=== PATIENT | male | born 1990 | race Caucasian/White ===

== ENCOUNTER 2017-08-08 11:12 | Emergency (ER) | payer SELFPAY ==
[2017-08-08 11:23] VITALS: BP 142/90; BMI 36.2
[2017-08-08] MEDS ORDERED: TORADOL 30 MG VIAL IVP ONE (12:25)
[2017-08-08] MEDS ORDERED: PHENERGAN INJ 25 MG IV PRN (12:25)
[2017-08-08] MEDS ORDERED: NS 1000 ML 1,000 ML IV ONE (12:25)
--- NOTE | 2017-08-08 12:25 | DR.GENAD ---
HPI - PCP Primary Care Physician: NFD - Complaint/Symptoms Chief Complaint Doctors Comments: Patient admits to nausea and vomiting for four days. Denies fever or diarrhea. He states that he got weak this AM and mom kept him from falling to the floor. He also reports that he has a headache. Chief Complaint:: PT STATES " I HAVE BEEN SICK AND I BLACKED OUT ABOUT 15 MIN AGO AND MY MOM TOLD ME TO COME ". / Self Treatment fo Chief Complaint: OTC COLD MEDS - Source History Provided: Patient - Mode of Arrival Mode of Arrival: Ambulatory - Timing Onset of Chief Complaint: 08/08/17 PMH - PMH Past Medical History: No Past Surgical History: No - Family History History of Family Medical Conditions: No - Social History Does patient currently use any type of tobacco product: No Have you used tobacco products in the last 12 months: No Type of Tobacco Use: None Does any household member use tobacco: No Alcohol Use: Rarely Do you use any recreational Drugs:: No Lives Where: Home - infectious screening In the last 2 months have you had wt loss of >10#?: NO Have you had fever, night sweats or hemotysis?: No Have you traveled outside the country in the last 6 months?: No Isolation: Standard ROS - Review of Systems Constitutional: No Symptoms Reported Eyes: No Symptoms Reported ENTM: No Symptoms Reported Respiratoy: No Symptoms Reported Cardiovascular: No Symptoms Reported Gastrointestinal/Abdominal: No Symptoms Reported Genitourinary: No Symptoms Reported Neurological: No Symptoms Reported Musculoskeletal: No Symptoms Reported Integumentary: No Symptoms Reported Hematologic/Lymphatic: No Symptoms Reported Endocrine: No Symptoms Reported Psychiatric: No Symptoms Reported All Other Systems: Reviewed and Negative PE - Vital Signs Vitals: Temperature 98.1 F Pulse Rate 74 Respiratory Rate 20 Blood Pressure 142/90 O2 Sat by Pulse Oximetry 99 - General General Appearance: Alert, In No Apparent Distress - Head Head Exam: Normal Inspection, Atraumatic - Eyes Eye exam: Normal Appearance, PERRL, EOMI - ENT ENT Exam: Normal Exam. negative: Mucous Membranes Dry External Ear Exam: Normal External Inspection TM/Canal Exam: Bilateral Normal Nose Exam: Normal Nose Exam Mouth Exam: Normal Inspection Throat Exam: Normal Inspection - Neck Neck Exam: Normal Inspection - Chest Chest Inspection: Normal Inspection - Respiratory Respiratory Exam: Normal Lung Sounds Bilat Respiratory Exam: Bilateral Clear to Auscultation - Cardiovascular Cardiovascular Exam: Regular Rate, Normal Rhythm - Abdominal Exam Abdominal Exam: Normal Inspection Abdominal Tenderness: negative: RUQ, RLQ, LUQ, LLQ, Epigastrium, Suprapubic, Diffuse, Mild, Moderate, Severe, Other - Extremities Extremities Exam: Normal Inspection, Full ROM - Back Back Exam: Normal Inspection, Tenderness - Psychiatric Psychiatric Exam: Normal Affect - Skin Skin Exam: Warm, Dry, Intact Course - Reevaluation 1st: Improved ROR - Labs Reviewed Laboratory: Specimen Type Clean catch urine 08/08/17 13:12 Urine Color Yellow (YELLOW) 08/08/17 13:12 Urine Appearance Clear (CLEAR) 08/08/17 13:12 Urine pH 8.0 (5.0 - 8.0) 08/08/17 13:12 Ur Specific [place] 1.015 (1.000-1.030) 08/08/17 13:12 Urine Protein Negative (NEGATIVE) 08/08/17 13:12 Urine Glucose (UA) Negative (NEGATIVE) 08/08/17 13:12 Urine Ketones Negative (NEGATIVE) 08/08/17 13:12 Urine Occult Blood Negative (NEGATIVE) 08/08/17 13:12 Urine Nitrite Negative (NEGATIVE) 08/08/17 13:12 Urine Bilirubin Negative (NEGATIVE) 08/08/17 13:12 Urine Urobilinogen Normal (NORMAL) 08/08/17 13:12 Ur Leukocyte Esterase 1+ (NEGATIVE) 08/08/17 13:12 Urine RBC 0-1 /HPF (NEGATIVE) 08/08/17 13:12 Urine WBC 2-3 /HPF (NEGATIVE) 08/08/17 13:12 Ur Squamous Epith Cells Few /HPF (NEGATIVE) 08/08/17 13:12 Urine Bacteria Trace /HPF (NEGATIVE) 08/08/17 13:12 Urine Mucus Few /HPF (NEGATIVE) 08/08/17 13:12 Ur Culture Indicated? No/not indicated 08/08/17 13:12 Streptococcus Screen Negative (NEGATIVE) 08/08/17 13:16 - Diagnosis Discharge Problem: Viral infection - Discharge Plan Condition: Stable - Follow ups/Referrals Follow ups/Referrals: NFD,None [Primary Care Provider] - 3 days - Instructions
[2017-08-08] MEDS ORDERED: TORADOL 30 MG VIAL ONE (12:27)
[2017-08-08] MEDS ORDERED: PHENERGAN INJ 25 MG ONE (12:28)
[2017-08-08] MEDS ORDERED: NS 1000 ML 1,000 ML ONE (12:30)
[2017-08-08 13:24] LABS: BILIRUBIN,URINE NEGATIVE (NEGATIVE); BLOOD/HEMOGLOBIN,URINE NEGATIVE (NEGATIVE); GLUCOSE, URINE NEGATIVE (NEGATIVE); KETONES,URINE NEGATIVE (NEGATIVE); LEUKOCYTE ESTERASE ,URINE 1+ (NEGATIVE); NITRITES,URINE NEGATIVE (NEGATIVE); PROTEIN,URINE NEGATIVE (NEGATIVE); UROBILINOGEN,URINE NORMAL (NORMAL)
[2017-08-08 13:32] LABS: APPEARANCE,URINE CLEAR (CLEAR); COLOR,URINE YELLOW (YELLOW); RBC,URINE 0-1 /HPF (NEGATIVE)
[2017-08-08 13:33] LABS: BACTERIA,URINE TRACE /HPF (NEGATIVE); MUCUS,URINE FEW /HPF (NEGATIVE); SQUAMOUS EPITHELIAL CELL,UR FEW /HPF (NEGATIVE)
== END 2017-08-08 14:35 | disposition home or self-care (01) ==
LOC: ER 11:36
DX: B34.8 Other viral infections of unspecified site (principal); B95.0 Streptococcus, group A, as the cause of diseases classified elsewhere
CPT/HCPCS: 81001; 87070; 87077; 87186; 87880; 96365; 96374; 96375; 99282; 99283; A4222; J1885; J2550

== ENCOUNTER 2017-11-06 12:48 | Emergency (ER) | payer SELFPAY ==
[2017-11-06 13:07] VITALS: BMI 34.9
--- NOTE | 2017-11-06 13:19 | DR.GENAD ---
HPI - PCP Primary Care Physician: nfd - Complaint/Symptoms Chief Complaint Doctors Comments: Patient states that he drank too much alcohol on last nigh. He has been vomiting since last night, admits to headache and nausea Chief Complaint:: PT STATES HE DRANK TOO MUCH ALCOHOL LAST NIGHT. THINKS HE HAS ALCOHOL POISONING. STATES HE STOPPED DRINKING LAST NIGHT AT 1030PM. PT STATES HE WAS DRINKING "SANDRA" - Source History Provided: Patient - Mode of Arrival Mode of Arrival: Ambulatory - Timing Onset of Chief Complaint: 11/06/17 PMH - PMH Past Medical History: No Past Surgical History: No - Family History History of Family Medical Conditions: No - Social History Does patient currently use any type of tobacco product: No Have you used tobacco products in the last 12 months: No Type of Tobacco Use: None Does any household member use tobacco: Yes Alcohol Use: None Do you use any recreational Drugs:: No Lives With: Alone Lives Where: Home - infectious screening In the last 2 months have you had wt loss of >10#?: NO Have you had fever, night sweats or hemotysis?: No Have you traveled outside the country in the last 6 months?: No Isolation: Standard ROS - Review of Systems Eyes: No Symptoms Reported ENTM: No Symptoms Reported Respiratoy: No Symptoms Reported Cardiovascular: No Symptoms Reported Gastrointestinal/Abdominal: No Symptoms Reported Genitourinary: No Symptoms Reported Neurological: No Symptoms Reported Musculoskeletal: No Symptoms Reported Integumentary: No Symptoms Reported Hematologic/Lymphatic: No Symptoms Reported Endocrine: No Symptoms Reported Psychiatric: No Symptoms Reported All Other Systems: Reviewed and Negative PE - Vital Signs Vitals: Temperature 98.1 F Pulse Rate 91 Respiratory Rate 20 Blood Pressure 146/86 O2 Sat by Pulse Oximetry 96 - General General Appearance: Alert, In No Apparent Distress - Head Head Exam: Normal Inspection, Atraumatic - Eyes Eye exam: Normal Appearance, PERRL, EOMI - ENT ENT Exam: Normal Exam External Ear Exam: Normal External Inspection TM/Canal Exam: Bilateral Normal Nose Exam: Normal Nose Exam Mouth Exam: Normal Inspection Throat Exam: Normal Inspection - Neck Neck Exam: Normal Inspection - Chest Chest Inspection: Normal Inspection - Respiratory Respiratory Exam: Normal Lung Sounds Bilat Respiratory Exam: Bilateral Clear to Auscultation - Cardiovascular Cardiovascular Exam: Regular Rate, Normal Rhythm - Abdominal Exam Abdominal Exam: Normal Inspection, Normal Bowel Sounds Abdominal Tenderness: negative: RUQ, RLQ, LUQ, LLQ, Epigastrium, Suprapubic, Diffuse, Mild, Moderate, Severe, Other - Extremities Extremities Exam: Normal Inspection, Full ROM - Back Back Exam: Normal Inspection - Neurologic Neurological Exam: Alert, Oriented X3, CN II-XII Intact - Psychiatric Psychiatric Exam: Normal Affect, Normal Mood - Skin Skin Exam: Warm, Dry, Intact Course - Reevaluation 1st: Improved ROR - Labs Reviewed Result Diagrams: 11/06/17 13:30 11/06/17 13:30 Laboratory: WBC 6.4 X10^3/uL (3.6-10.0) 11/06/17 13:30 RBC 4.85 X10^6/uL (4.7-6.0) 11/06/17 13:30 Hgb 14.8 g/dL (13.5-18.0) 11/06/17 13:30 Hct 43.2 % (42.0-54.0) 11/06/17 13:30 MCV 89.1 fL (80.0-100.0) 11/06/17 13:30 MCH 30.4 pg (27.0-34.0) 11/06/17 13:30 MCHC 34.2 g/dL (33.0-35.0) 11/06/17 13:30 RDW 13.4 % (11.6-16.5) 11/06/17 13:30 Plt Count 225 X10^3/uL (150.0-450.0) 11/06/17 13:30 MPV 8.9 fL (7.4-11.0) 11/06/17 13:30 Neut % 68.1 % (42.0-75.0) 11/06/17 13:30 Lymph % 22.5 % (21.0-51.0) 11/06/17 13:30 [place] % 6.3 % (0.0-13.0) 11/06/17 13:30 Eos % 1.7 % (0.9-2.9) 11/06/17 13:30 Baso % 1.4 % (0.2-1.0) H 11/06/17 13:30 Neut # 4.4 x10^3/uL (2.2-4.8) 11/06/17 13:30 Lymph # 1.5 X10^3/uL (1.3-2.9) 11/06/17 13:30 Porter # 0.4 x10^3/uL (0.3-0.8) 11/06/17 13:30 Eos # 0.1 x10^3/uL (0.0-0.2) 11/06/17 13:30 Baso # 0.1 X10^3/uL (0.0-0.1) 11/06/17 13:30 Absolute Nucleated RBC 0.0 /100WBC 11/06/17 13:30 Sodium 141 mmol/L (136-145) 11/06/17 13:30 Corrected Sodium TNP 11/06/17 13:30 Potassium 4.1 mmol/L (3.5-5.1) 11/06/17 13:30 Chloride 105 mmol/L (98-107) 11/06/17 13:30 Carbon Dioxide 28.0 mmol/L (21-32) 11/06/17 13:30 BUN 11 mg/dL (7-18) 11/06/17 13:30 Creatinine 1.25 mg/dL (0.70-1.30) 11/06/17 13:30 Est GFR (MDRD) Af Amer > 60 (>60) 11/06/17 13:30 Est GFR (MDRD) Non-Af > 60 (>60) 11/06/17 13:30 Glucose 107 mg/dL (65-99) H 11/06/17 13:30 Calcium 8.3 mg/dL (8.5-10.1) L 11/06/17 13:30 Specimen Type Clean catch urine 11/06/17 15:46 Urine Color Yellow (YELLOW) 11/06/17 15:46 Urine Appearance Clear (CLEAR) 11/06/17 15:46 Urine pH 8.0 (5.0 - 8.0) 11/06/17 15:46 Ur Specific [place] 1.015 (1.000-1.030) 11/06/17 15:46 Urine Protein Negative (NEGATIVE) 11/06/17 15:46 Urine Glucose (UA) Negative (NEGATIVE) 11/06/17 15:46 Urine Ketones Negative (NEGATIVE) 11/06/17 15:46 Urine Occult Blood Negative (NEGATIVE) 11/06/17 15:46 Urine Nitrite Negative (NEGATIVE) 11/06/17 15:46 Urine Bilirubin Negative (NEGATIVE) 11/06/17 15:46 Urine Urobilinogen Normal (NORMAL) 11/06/17 15:46 Ur Leukocyte Esterase Negative (NEGATIVE) 11/06/17 15:46 Urine RBC None seen /HPF (NEGATIVE) 11/06/17 15:46 Urine WBC 0-1 /HPF (NEGATIVE) 11/06/17 15:46 Ur Squamous Epith Cells Negative /HPF (NEGATIVE) 11/06/17 15:46 Urine Bacteria Trace /HPF (NEGATIVE) 11/06/17 15:46 Urine Sperm Few /HPF (NEGATIVE) 11/06/17 15:46 Ur Culture Indicated? No/not indicated 11/06/17 15:46 Urine Opiates Screen Negative (NEG=<300) 11/06/17 15:46 Urine Methadone Screen Negative (NEG=<300) 11/06/17 15:46 Ur Barbiturates Screen Negative (NEG=<200) 11/06/17 15:46 Ur Phencyclidine Scrn Negative (NEG=<25) 11/06/17 15:46 Ur Amphetamines Screen Negative (NEG=<1000) 11/06/17 15:46 U Benzodiazepines Scrn Negative (NEG=<200) 11/06/17 15:46 Urine Cocaine Screen Negative (NEG=<300) 11/06/17 15:46 U Marijuana (THC) Screen Negative (NEG=<50) 11/06/17 15:46 - Diagnosis Discharge Problem: Alcohol consumption binge drinking - Discharge Plan Condition: Stable - Follow ups/Referrals Follow ups/Referrals: NFD,None [Primary Care Provider] - 3 days - Instructions
[2017-11-06] MEDS ORDERED: ZOFRAN INJ 4 MG VIAL IVP ONE (13:21)
[2017-11-06] MEDS ORDERED: NS 1000 ML 1,000 ML ONE (13:25)
[2017-11-06] MEDS ORDERED: MAGNESIUM SULFATE 50% INJ ONE (13:26)
[2017-11-06] MEDS ORDERED: THIAMINE HCL INJ ONE (13:26)
[2017-11-06] MEDS ORDERED: PHENOBARBITAL SODIUM INJ 65 MG VIAL ONE (13:26)
[2017-11-06] MEDS ORDERED: MVI INJ (ADULT) IV ONE (13:31)
[2017-11-06] MEDS ORDERED: ZOFRAN INJ 4 MG VIAL ONE (13:32)
[2017-11-06 13:41] LABS: BASOPHILS # (AUTO) 0.1 X10^3/uL (0.0-0.1); BASOPHILS % (AUTO) 1.4 % (0.2-1.0); EOSINOPHILS # (AUTO) 0.1 x10^3/uL (0.0-0.2); EOSINOPHILS % (AUTO) 1.7 % (0.9-2.9); HEMATOCRIT 43.2 % (42.0-54.0); HEMOGLOBIN 14.8 g/dL (13.5-18.0); LYMPHOCYTES # (AUTO) 1.5 X10^3/uL (1.3-2.9); LYMPHOCYTES % (AUTO) 22.5 % (21.0-51.0); MEAN CORPUSCULAR HEMOGLOBIN 30.4 pg (27.0-34.0); MEAN CORPUSCULAR HGB CONC 34.2 g/dL (33.0-35.0); MEAN CORPUSCULAR VOLUME 89.1 fL (80.0-100.0); MEAN PLATELET VOLUME 8.9 fL (7.4-11.0); MONOCYTES # (AUTO) 0.4 x10^3/uL (0.3-0.8); MONOCYTES % (AUTO) 6.3 % (0.0-13.0); NEUTROPHILS # (AUTO) 4.4 x10^3/uL (2.2-4.8); NEUTROPHILS % (AUTO) 68.1 % (42.0-75.0); PLATELET COUNT 225 X10^3/uL (150.0-450.0); RED BLOOD COUNT 4.85 X10^6/uL (4.7-6.0); RED CELL DISTRIBUTION WIDTH 13.4 % (11.6-16.5); WHITE BLOOD COUNT 6.4 X10^3/uL (3.6-10.0)
[2017-11-06 13:48] LABS: BLOOD UREA NITROGEN 11 mg/dL (7-18); CALCIUM 8.3 mg/dL (8.5-10.1); CHLORIDE 105 mmol/L (98-107); CREATININE 1.25 mg/dL (0.70-1.30); SODIUM 141 mmol/L (136-145); eGFR BLACK RACES > 60 (>60); eGFR NON BLACK RACES > 60 (>60)
[2017-11-06] MEDS ORDERED: NS 1000 ML 1,000 ML with THIAMINE HCL INJ 100 MG, MAGNESIUM SULFATE 50% INJ 1 GM, MVI I... IV SCH ×5 (14:00)
[2017-11-06 15:56] LABS: BILIRUBIN,URINE NEGATIVE (NEGATIVE); BLOOD/HEMOGLOBIN,URINE NEGATIVE (NEGATIVE); GLUCOSE, URINE NEGATIVE (NEGATIVE); KETONES,URINE NEGATIVE (NEGATIVE); LEUKOCYTE ESTERASE ,URINE NEGATIVE (NEGATIVE); NITRITES,URINE NEGATIVE (NEGATIVE); PROTEIN,URINE NEGATIVE (NEGATIVE); UROBILINOGEN,URINE NORMAL (NORMAL)
[2017-11-06 16:09] LABS: APPEARANCE,URINE CLEAR (CLEAR); BACTERIA,URINE TRACE /HPF (NEGATIVE); COLOR,URINE YELLOW (YELLOW); RBC,URINE NONE SEEN /HPF (NEGATIVE); SQUAMOUS EPITHELIAL CELL,UR NEGATIVE /HPF (NEGATIVE)
[2017-11-06 16:10] LABS: SPERM,URINE FEW /HPF (NEGATIVE)
[2017-11-06 16:28] VITALS: BP 130/72
== END 2017-11-06 16:29 | disposition home or self-care (01) ==
LOC: ER 13:03
DX: F10.10 Alcohol abuse, uncomplicated (principal)
CPT/HCPCS: 36415; 80048; 80307; 81001; 85025; 96365; 96367; 96374; 99282; 99283; A4222; G0434; J2405; J2560; J3411; J3475

== ENCOUNTER 2018-03-18 15:59 | Emergency (ER) | payer SELFPAY ==
[2018-03-18 16:06] VITALS: BP 139/79; BMI 34.9
[2018-03-18] MEDS ORDERED: TORADOL 60 MG VIAL IM ONE (16:52)
[2018-03-18] MEDS ORDERED: ATIVAN INJ 2 MG VIAL IM STA (16:53)
--- NOTE | 2018-03-18 16:56 | DR.GENAD ---
HPI - PCP Primary Care Physician: nfd - Complaint/Symptoms Chief Complaint Doctors Comments: Patient complains of right shoulder, neck and upper back pain for the past 24 hours getting worst. States he had a little tightness in his neck yesterday and last night he used some Bio-Freeze and her played a golf tournament today with severe right neck pain after taking a swing of the golf clubs and now unable to move his neck from the right side. states he is having severe right lateral neck, shoulder and upper back pain worst on movement. states the pain is 10 of 10. States he has not had anything for the pain and has only used Bio-Freeze. He denies tobacco use but drinks beer socially. He denies fever, chills, cold, or cough. Chief Complaint:: patient c/o right shoulder and arm pain that started last night but got worse after a golfing event today. Patient has attempted a warm bath and biofreeze for pain relief without relief. Patient is holding arm with neck turned to right side. - Nurses notes reviewed Nurses Notes Review: Yes - Source History Provided: Patient - Mode of Arrival Mode of Arrival: Ambulatory - Timing Onset of Chief Complaint: 03/17/18 Came on: Gradually - Duration Duration: Constant How lon Duration: Days - Location Location: right lateral neck pain - Severity Severity: Moderate - Modifying Factors Worsens:: movement Improves:: movement PMH - PMH Past Medical History: No Past Surgical History: No - Family History History of Family Medical Conditions: No - Social History Does patient currently use any type of tobacco product: No Have you used tobacco products in the last 12 months: No Type of Tobacco Use: None Does any household member use tobacco: No Alcohol Use: Occasionally Do you use any recreational Drugs:: No Lives With: Family Lives Where: Home - infectious screening In the last 2 months have you had wt loss of >10#?: NO Have you had fever, night sweats or hemotysis?: No Have you traveled outside the country in the last 6 months?: No Isolation: Standard ROS - Review of Systems Constitutional: No Symptoms Reported. negative: See HPI, Chills, Diaphoresis, Fever, Malaise, Weakness, Irritable, Fatigue, Loss of Appetite, Other Eyes: No Symptoms Reported ENTM: No Symptoms Reported Respiratoy: No Symptoms Reported Cardiovascular: No Symptoms Reported. negative: See HPI, Chest Pain, Edema, Palpitations, Syncope, Cyanosis, Skin Mottling, Other Gastrointestinal/Abdominal: No Symptoms Reported. negative: See HPI, Abdominal Pain, Constipation, Diarrhea, Nausea, Vomiting, Food Intolerance, Other Genitourinary: No Symptoms Reported. negative: See HPI, Discharge, Dysuria, Frequency, Hematuria, Pain, Bleeding, Other Neurological: No Symptoms Reported, Paresthesia Musculoskeletal: No Symptoms Reported, Muscle Pain, Muscle Stiffness, Neck Pain , Right, Back, Shoulder Integumentary: No Symptoms Reported. negative: See HPI, Change in Color, Change in Hair/Nails, Dryness, Lesions, Lumps, Rash, Itching, Wound, Bruises, Juandice, Other Hematologic/Lymphatic: No Symptoms Reported Endocrine: No Symptoms Reported Psychiatric: No Symptoms Reported PE - Vital Signs Vitals: Temperature 99.7 F Pulse Rate 97 Respiratory Rate 20 Blood Pressure [Right Arm] 130/72 Blood Pressure 139/79 O2 Sat by Pulse Oximetry 98 - General Limitations: No Limitations General Appearance: Alert, In Distress (moderate) - Head Head Exam: Normal Inspection, Atraumatic, Normocephalic - Eyes Eye exam: Normal Appearance, PERRL, EOMI. negative: Scleral Icterus, Conjunctival Injection, Nystagmus, Miosis, Mydrasis, Periorbital Swelling, Periorbital Tenderness, Other - ENT ENT Exam: Normal Exam, Normal Oropharynx, Normal External Ear Exam, Mucous Membranes Moist, TM's Normal Bilaterally External Ear Exam: Normal External Inspection TM/Canal Exam: Bilateral Normal Nose Exam: Normal Nose Exam Mouth Exam: Normal Inspection Throat Exam: Normal Inspection, Tonsillomegaly. negative: Tonsillar Erythema, Tonsillar Exudate, R Peritonsillar Mass, L Peritonsillar Mass, Muffled Voice, Other - Neck Neck Exam: Normal Inspection, Full ROM, Tenderness (right lateral neck spasms; tender firm muscles tender on movement). negative: Trachea Midline - Chest Chest Inspection: Normal Inspection, Symmetric Chest Wall Rise - Respiratory Respiratory Exam: Normal Lung Sounds Bilat Respiratory Exam: Bilateral Clear to Auscultation - Cardiovascular Cardiovascular Exam: Regular Rate, Normal Rhythm, Normal Heart Sounds, Systolic Murmur - Abdominal Exam Abdominal Exam: Normal Inspection, Normal Bowel Sounds, Soft Abdominal Tenderness: negative: RUQ, RLQ, LUQ, LLQ, Epigastrium, Suprapubic, Diffuse, Mild, Moderate, Severe, Other - Extremities Extremities Exam: Normal Inspection, Full ROM, Normal Capillary Refill. negative: Tenderness, Edema, Joint Swelling, Calf Tenderness, Other - Back Back Exam: Normal Inspection, Full ROM - Neurologic Neurological Exam: Alert, Oriented X3, CN II-XII Intact, Normal Gait, Reflexes Normal - Psychiatric Psychiatric Exam: Normal Affect, Normal Mood - Skin Skin Exam: Warm, Dry, Intact, Normal Color ROR - Labs Reviewed Laboratory Results Reviewed?: Yes (all x-ray results reviewed and discussed with patient) - XRAY XRAY Interpreted by: Radiologist (CT cervical spine: No evidence for traumatic injury of the crvical spine) - Diagnosis Discharge Problem: Acute neck pain, Torticollis, spasmodic, Cervical paraspinous muscle spasm - Discharge Plan Disposition: HOME, SELF-CARE Condition: Stable Prescriptions: Acetaminophen/Codeine Tab [TYLENOL w/CODEINE #3 (300 MG/30 MG) *] 1 tab PO Q4- 6H PRN #14 tab PRN Reason: Pain Cyclobenzaprine HCl [FLEXERIL 10 MG *] 10 mg PO TID #18 tab Naproxen [Naprosyn] 500 mg PO BID PRN #60 tab PRN Reason: Pain/Inflammation - Follow ups/Referrals Follow ups/Referrals: NFD,None [Primary Care Provider] - 3 days - Instructions Instructions: Muscle Cramps and Spasms, [id number], Neck Exercises, Acute Torticollis, Adult, Heat Therapy, [id number]
[2018-03-18] MEDS ORDERED: TORADOL 60 MG VIAL ONE (16:57)
[2018-03-18] MEDS ORDERED: ATIVAN INJ 2 MG VIAL ONE (16:58)
--- NOTE | 2018-03-18 17:22 | CT ---
HISTORY: Right shoulder pain and neck pain after golfing of the left today Study: CT cervical spine without contrast Comparison: None Technique: Multiple axial images of the cervical spine were obtained from the skull base to the thora cic inlet without administration of IV contrast. Sagittal and coronal reformats were performed and r eviewed. Findings: Alignment of the cervical spine is maintained. There is some mild rotary subluxation probably due to a muscle spasm. No evidence for acute cortical disruption or subluxation can be seen. The central c anal remains free of compromise from bony fragments or significant soft tissue encroachment. The pos terior elements appear unremarkable. The prevertebral soft tissues are normal in their appearance. In addition, the surrounding paraspinous soft tissues are unremarkable. IMPRESSION: 1. No evidence for traumatic injury of the cervical spine. Reported By:
== END 2018-03-18 18:39 | disposition home or self-care (01) ==
LOC: ER 16:08
DX: M54.2 Cervicalgia (principal); M43.6 Torticollis; M62.838 Other muscle spasm
CPT/HCPCS: 72125; 96372; 99282; J1885; J2060

== ENCOUNTER 2018-03-28 11:10 | Emergency (ER) | payer SELFPAY ==
[2018-03-28 11:22] VITALS: BP 134/85; BMI 34.9
[2018-03-28] MEDS ORDERED: TORADOL 60 MG VIAL IM ONE (13:48)
--- NOTE | 2018-03-28 13:49 | DR.EXTPAIN ---
HPI - Time seen Time seen: 13:40 - PCP Primary Care Physician: ADRIEN - HPI Comment HPI Comment: HISTORY BELOW. - Complaint/Symptoms Chief Complaint Doctor Comments: RT ELBOW AND SHOULDER PAIN RADIATING TO SHOULDER BLADE AND RT NECK AFTER FALLING. HAVE BEING HAVING PAIN AFTER PLAYING GOLF. HAVE ALSO HAD PROBLEMS IN SAME RUE FOR OVER 2 WEEKS, Chief Complaint:: WAS SEEN 2 WEEKS AGO FOR THE SAME PROBLEM AND HAS HAD INCREASED PAIN SINCE PLAYING GOLF. THIS AM HE FELT BACK TIGHTEN UP AND HE FELL FROM HEIGHT OF ABOUT 41/2 FEET. RIGHT SIDE OF NECK AND DOWN RIGHT ELBOW AND TENDER IN MUSCLE Self Treatment fo Chief Complaint: TAKING MEDS ORDERED - Nurses notes reviewed Nurses Notes Review: Yes - Source History Provided: Patient - Mode of arrival Mode of Arrival: Ambulatory - Timing Onset of Chief Complaint: 03/28/18 - Context History of: None - Associated signs and symptoms Associated Signs and Symptoms: None PMH - PMH Past Medical History: No Past Surgical History: No - Family History History of Family Medical Conditions: No - Social History Type of Tobacco Use: None Alcohol Use: Rarely Do you use any recreational Drugs:: No Lives With: Alone Lives Where: Home - infectious screening In the last 2 months have you had wt loss of >10#?: NO Have you had fever, night sweats or hemotysis?: No Have you traveled outside the country in the last 6 months?: No ROS - Review of Systems Constitutional: No Symptoms Reported Eyes: No Symptoms Reported ENTM: No Symptoms Reported Respiratoy: No Symptoms Reported Genitourinary: No Symptoms Reported Neurological: No Symptoms Reported Musculoskeletal: Back Pain (RT UPPER BACK OVER SHOULDER BLADE.), Right, Shoulder , Elbow Integumentary: No Symptoms Reported Hematologic/Lymphatic: No Symptoms Reported Endocrine: No Symptoms Reported All Other Systems: Reviewed and Negative PE - Vital Signs Vitals: Temperature 98.3 F Pulse Rate 83 Respiratory Rate 18 Blood Pressure [Right Arm] 130/72 Blood Pressure 134/85 O2 Sat by Pulse Oximetry 99 - General Limitations: No Limitations General Appearance: Alert - Head Head Exam: Normal Inspection - Eyes Eye exam: Normal Appearance - ENT ENT Exam: Normal External Ear Exam - Neck Neck Exam: Trachea Midline - Chest Chest Inspection: Symmetric Chest Wall Rise - Respiratory Respiratory Exam: Normal Lung Sounds Bilat Respiratory Exam: Bilateral Clear to Auscultation - Cardiovascular Cardiovascular Exam: Regular Rate, Normal Rhythm, Normal Heart Sounds - Abdominal Exam Abdominal Exam: Normal Bowel Sounds, Soft. negative: Tenderness - Extremities Extremities Exam: Tenderness (RT SHOUDER AND ELBOW TENDERNESS, DECREASE ROM.) - Neurological Neurological Exam: Alert, Oriented X3 - Psychiatric Psychiatric Exam: Normal Affect, Normal Mood - Skin Skin Exam: Normal Color MDM - Differential Diagnosis Differential Diagnosis: Contusion, Fracture, Sprain Course - Treatment Treatment: SEE ORDERS. - Education/Counseling Education/Counseling: Patient, Education Educated On: Diagnosis, Needs for Follow Up ROR - XRAY XRAY Interpreted by: Radiologist XRAY Findings: REPORT DISCUSS WITH PATIENT. - Diagnosis Discharge Problem: Elbow pain Qualifiers: Laterality: right Qualified Code(s): M25.521 - Pain in right elbow Shoulder pain, acute Qualifiers: Laterality: right Qualified Code(s): M25.511 - Pain in right shoulder - Discharge Plan Disposition: 01 HOME, SELF-CARE Condition: Stable - Follow ups/Referrals Follow ups/Referrals: VALERIA WHALEY [STAFF PHYSICIAN] - 1 day Don Yip [STAFF PHYSICIAN] - 1 day NFD,None [Primary Care Provider] - 1 day - Instructions Instructions: Shoulder Pain, [id number], Joint Pain, [id number] Additional Instructions: RETURN TO ED IF WORSE. CONTINUE WITH MEDS YOU HAVE AT HOME.
[2018-03-28] MEDS ORDERED: TORADOL 60 MG VIAL ONE (13:59)
--- NOTE | 2018-03-28 14:19 | RAD ---
HISTORY: Injury right elbow, fall Study: Right elbow AP, lateral, oblique Comparison: None Findings: There is no evidence for fracture, lytic, or blastic lesion. No joint erosion or joint effusion is id entified. IMPRESSION: No significant abnormality identified Reported By:
--- NOTE | 2018-03-28 14:20 | RAD ---
Indication: Pain Exam: Right shoulder series Findings: The glenohumeral joint is intact. No fracture or dislocation is seen. The AC joint is intac t . The soft tissues are normal. There appear to be small bone islands along the humeral head and nec k region. The soft tissues are normal. Impression: Probable small bone island along the humeral head and neck otherwise , unremarkable. Reported By:
== END 2018-03-28 14:40 | disposition home or self-care (01) ==
LOC: ER 11:37
DX: M25.521 Pain in right elbow (principal); M25.511 Pain in right shoulder
CPT/HCPCS: 73030; 73070; 96372; 99282; J1885